=== PATIENT | male | born 1960 | race Caucasian/White ===

== ENCOUNTER → 2017-05-29 | Outpatient (CLI) | payer OTHER ==
--- NOTE | 2017-06-02 06:58 | RADIOLOGY REPORT PS360 ---
MRI-UP EXT ANY JNT W/O-LT HISTORY: Left shoulder pain with limited range of motion LT SHOULDER PAIN, UNSPECIFIED CHRONICITY ORDERING PHYSICIAN: Olegario Cuellar MD PATIENT AGE: 57 years COMPARISON: Radiograph of 05/14/2017, MRI of 11/25/2014 TECHNIQUE: Standard multiplanar multiecho sequences are performed without contrast. FINDINGS: There is generalized motion artifact which does decrease spine detail introduces [id number] ratio. There are hypertrophic changes of the acromioclavicular joint with subacromial stenosis. There are slight increased T2 signal of the supraspinatus tendon consistent with tendinopathy/tendinosis. A definite rotator cuff tear is not identified. Partial tear may not be seen secondary to motion artifact. The infraspinatus, subscapularis, and teres minor tendons are intact. The bicipital tendon is in place. No obvious labral tear. No fracture. There is some increased T2 signal along the posterior aspect of the humeral head similar to the previous exam suggesting some minimal subcortical cystic change. IMPRESSION: 1. Acromioclavicular arthropathy with subacromial stenosis. 2. Mild tendinopathy/tendinosis of the supraspinatus tendon. No definite rotator cuff tear. 3. Somewhat limited exam secondary to motion artifact.
== END ==
LOC: RAD 13:00
DX: M25.512 Pain in left shoulder (principal)